=== PATIENT | male | born 1945 | race Caucasian/White ===

== ENCOUNTER 2017-07-02 14:19 | Inpatient (IN) ==
[2017-07-02] MEDS ORDERED: ACETAMINOPHEN 325 MG TABLET PO PRN (17:14)
[2017-07-02 17:37] LABS: Basophils # 0.1 10*3/uL (0.0-0.2); Basophils % 0.2 % (0.0-0.8); Hematocrit 45.1 VOL% (42.0-52.0); Hemoglobin 15.2 GM/DL (14.0-18.0); Immature Granulocytes % 1.3 %; Lymphocytes # 1.5 10*3/uL (1.4-4.0); Lymphocytes % 6.5 % (21.2-54.2); Mean Corpuscular HGB Conc 33.7 GM/DL (32-36); Mean Corpuscular Hemoglobin 31 PG (27-34); Mean Platelet Volume 10.8 FL (9.6-12.0); Monocytes # 1.5 10*3/uL (0.11-0.8); Monocytes % 6.4 % (1.7-12.7); Neutrophils # 19.8 10*3/uL (1.4-7.4); Neutrophils % 85.6 % (38.7-73.9); Platelet Count 187 T/CUMM (130-400); Red Cell Distribution Width 13.1 % (9.3-17.3); White Blood Count 23.1 T/CUMM (4-12)
[2017-07-02 18:11] LABS: Apearance,Urine CLOUDY (Clear); Bacteria,Urine Many /HPF (Few); Bilirubin,Urine Negative (Negative); Blood, Urine Large mg/dL (Negative); Glucose,Urine (UA) Negative (Negative); Ketones,Urine Negative (Negative); Nitrite,Urine Negative (Negative); Protein,Urine 100 MG/DL; RBC,Urine 434 /HPF (0-4); Urine Color Amber (Yellow); Urine Specific Gravity 1.033 (1.001-1.035); Urine Urobilinogen < 2.0 EU/DL (0.2-1.0); WBC,Urine 478 /HPF (0-6)
[2017-07-02 18:16] LABS: Calcium 9.4 MG/DL (8.5-10.1); Osmolality,Calculated 282.4 MOS/KG (273-304)
[2017-07-02 18:31] LABS: Lymphocytes 9 % (20-55); Platelet Estimate Normal; Segmented Neutrophils 85 % (50-85); Total Cells Counted 100
[2017-07-02] MEDS: DEXTROSE 5% NACL 0.45% 1,000 ML IV SCH (21:08)
[2017-07-02] MEDS: cefTRIAXone 1,000 MG in SYRINGE 1 EACH IV SCH (21:10)
[2017-07-02] MEDS ORDERED: ACETAMINOPHEN 325 MG TABLET PO ONE (22:44)
[2017-07-03] MEDS: DEXTROSE 5% NACL 0.45% 1,000 ML IV SCH ×3 (05:13→23:00)
[2017-07-03 07:04] LABS: Basophils % 0.1 % (0.0-0.8); Hemoglobin 12.8 GM/DL (14.0-18.0); Immature Granulocytes % 4.3 %; Immature Granulocytes Absolute 0.68 #; Lymphocytes # 1.2 10*3/uL (1.4-4.0); Lymphocytes % 7.7 % (21.2-54.2); Mean Corpuscular HGB Conc 34.6 GM/DL (32-36); Mean Corpuscular Hemoglobin 31 PG (27-34); Mean Corpuscular Volume 89.4 FL (87-102); Mean Platelet Volume 11.1 FL (9.6-12.0); Monocytes # 1.1 10*3/uL (0.11-0.8); Monocytes % 6.7 % (1.7-12.7); Neutrophils % 81.2 % (38.7-73.9); Platelet Count 123 T/CUMM (130-400); Red Blood Count 4.14 MC/CUMM (3.8-5.5); Red Cell Distribution Width 13.5 % (9.3-17.3); White Blood Count 15.9 T/CUMM (4-12)
[2017-07-03 07:22] LABS: Band Neutrophils 3 % (0-10); Lymphocytes 11 % (20-55); Segmented Neutrophils 78 % (50-85); Total Cells Counted 100
[2017-07-03 07:23] LABS: Hypochromasia 1+; Microcytosis 1+; Ovalocytes Slight
[2017-07-03 07:25] LABS: Platelet Estimate Adequate
[2017-07-03 07:32] LABS: Risk Ratio 1.94; VLDL CHOLESTEROL 15.2 MG/DL
[2017-07-03 08:37] LABS: Albumin 3.3 G/DL (3.4-5.0); Bilirubin,Total 0.6 MG/DL (0.2-1.0); Calcium 8.5 MG/DL (8.5-10.1); Total Protein 6.2 G/DL (6.4-8.3)
[2017-07-03 08:38] LABS: Osmolality,Calculated 282.5 MOS/KG (273-304); Potassium 3.5 MMOL/L (3.5-5.1)
[2017-07-03] MEDS: cefTRIAXone 1,000 MG in SYRINGE 1 EACH IV SCH ×2 (10:14→20:35)
[2017-07-03] MEDS: ACETAMINOPHEN 325 MG TABLET PO PRN ×2 (10:15→20:36)
[2017-07-03] MEDS: PANTOPRAZOLE 40 MG TABLET PO SCH (10:15)
[2017-07-04] MEDS: ACETAMINOPHEN 325 MG TABLET PO PRN ×2 (03:58→20:23)
[2017-07-04 06:48] LABS: Calcium 8.5 MG/DL (8.5-10.1); Osmolality,Calculated 276.8 MOS/KG (273-304); Potassium 3.2 MMOL/L (3.5-5.1)
[2017-07-04] MEDS: DEXTROSE 5% NACL 0.45% 1,000 ML IV SCH ×3 (08:30→19:06)
[2017-07-04 08:37] LABS: Basophils % 0.1 % (0.0-0.8); Eosinophils % 0.1 % (0.00-10.9); Hematocrit 34.5 VOL% (42.0-52.0); Hemoglobin 12.1 GM/DL (14.0-18.0); Immature Granulocytes Absolute 0.08 #; Lymphocytes # 0.5 10*3/uL (1.4-4.0); Lymphocytes % 6.4 % (21.2-54.2); Mean Corpuscular HGB Conc 35.1 GM/DL (32-36); Mean Corpuscular Hemoglobin 31 PG (27-34); Mean Corpuscular Volume 88.7 FL (87-102); Mean Platelet Volume 12.2 FL (9.6-12.0); Monocytes # 0.5 10*3/uL (0.11-0.8); Monocytes % 6.1 % (1.7-12.7); Neutrophils # 6.6 10*3/uL (1.4-7.4); Neutrophils % 86.3 % (38.7-73.9); Red Blood Count 3.89 MC/CUMM (3.8-5.5); Red Cell Distribution Width 13.4 % (9.3-17.3); White Blood Count 7.7 T/CUMM (4-12)
[2017-07-04 08:42] LABS: Platelet Count 96 T/CUMM (130-400)
[2017-07-04 08:59] LABS: Hypochromasia Slight
[2017-07-04] MEDS: PANTOPRAZOLE 40 MG TABLET PO SCH ×2 (09:18→09:19)
[2017-07-04] MEDS: cefTRIAXone 1,000 MG in SYRINGE 1 EACH IV SCH ×2 (09:19→20:24)
[2017-07-04] MEDS ORDERED: GENTAMICIN INJ 160 MG in SODIUM CHLORIDE 0.9% 100 ML IV ONE (09:21)
[2017-07-04] MEDS: POTASSIUM CHLORIDE 20 MEQ/15 ML UDCUP PO SCH ×3 (09:27→17:09)
[2017-07-04] MEDS: ATORVASTATIN 40 MG TABLET PO SCH (20:24)
[2017-07-05] MEDS: DEXTROSE 5% NACL 0.45% 1,000 ML IV SCH ×3 (05:30→14:59)
[2017-07-05 06:27] LABS: Calcium 8.4 MG/DL (8.5-10.1); Osmolality,Calculated 273.8 MOS/KG (273-304); Potassium 3.8 MMOL/L (3.5-5.1)
[2017-07-05] MEDS ORDERED: BISACODYL 5 MG TABLET PO ONE (07:48)
[2017-07-05] MEDS: ACETAMINOPHEN 325 MG TABLET PO PRN ×2 (09:25→21:16)
[2017-07-05] MEDS: PANTOPRAZOLE 40 MG TABLET PO SCH ×2 (09:26)
[2017-07-05] MEDS: cefTRIAXone 1,000 MG in SYRINGE 1 EACH IV SCH ×2 (09:28→21:16)
[2017-07-05] MEDS ORDERED: ALUM/MAG/SIMETH/LIDO VISC 1:1 30 ML BOTTLE PO ONE (15:51)
[2017-07-05] MEDS: ATORVASTATIN 40 MG TABLET PO SCH (18:03)
[2017-07-06] MEDS: DEXTROSE 5% NACL 0.45% 1,000 ML IV SCH (06:50)
[2017-07-06 07:27] VITALS: BP 136/60
[2017-07-06] MEDS: PANTOPRAZOLE 40 MG TABLET PO SCH ×2 (09:32)
[2017-07-06] MEDS: cefTRIAXone 1,000 MG in SYRINGE 1 EACH IV SCH (09:32)
== END 2017-07-06 11:37 | disposition home or self-care (01) | DRG 872 ==
LOC: N.5E
PROVIDERS: ADMIT Urology; ATTEND Urology